=== PATIENT | female | born 1985 | race Caucasian/White ===

== ENCOUNTER 2018-03-06 01:05 | Emergency (ER) | payer OTHER ==
[~2018-03-06] VITALS: Ht 154.9 cm; Wt 66.7 kg
[2018-03-06 01:20] VITALS: BP 123/80
--- NOTE | 2018-03-06 01:22 | NUR ---
TO BED # 3 AMB, REPORT GIVEN TO MARJORIE GOMEZ.
--- NOTE | 2018-03-06 01:38 | NUR ---
32/F CAME IN ED WITH FAMILY/FRIEND, C/O 9/10 GENERALIZED HEADACHE, X4 DAYS. PT REPORTS N/V X1 DAY, CHILLS. PT REPORTS EPIGASSTRIC PAIN. SKIN IS INTACT, PINK/WARM/DRY; AAOX4, PERRL, WITH EVEN AND STEADY GAIT; LUNGS CLEAR BL, BREATHING UNLABORED. PT DENIES ANY FEVER, CP, SOB, OR COUGH AT THIS TIME; PT DENIES MED HX, RX. NKA. PATIENT POSITIONED FOR COMFORT; HOB ELEVATED; BEDRAILS UP X2; BED DOWN.
[2018-03-06] MEDS ORDERED: SUMAtriptan 6 MG/0.5 ML VIAL SUBQ ONE (01:40)
[2018-03-06] MEDS ORDERED: ONDANSETRON 4 MG ODT PO ONE (01:40)
--- NOTE | 2018-03-06 02:45 | NUR ---
Patient discharged with v/s stable. Written and verbal after care instructions given and explained. Patient alert, oriented and verbalized understanding of instructions. Ambulatory with steady gait. All questions addressed prior to discharge. ID band removed. Patient advised to follow up with PMD. Rx of imitrex 25mg given. Patient educated on indication of medication including possible reaction and side effects. Opportunity to ask questions provided and answered.
[2018-03-06 02:47] VITALS: BP 116/80
== END 2018-03-06 02:45 | disposition home or self-care (01) ==
LOC: MED 01:05
DX: G43.909 Migraine, unspecified, not intractable, without status migrainosus (principal); R11.2 Nausea with vomiting, unspecified
CPT/HCPCS: 96372; 99283; J3030; Q0163; S0119